=== PATIENT | female | born 1985 | race American Indian/Alaskan Native ===

== ENCOUNTER 2021-03-31 08:49 | Outpatient (CLI) | payer OTHER ==
--- NOTE | 2021-03-31 09:46 | XRay Report ---
LUMBOSACRAL SPINE 3 VIEWS INDICATION: BACK PAIN. COMPARISON: None. IMPRESSION: There appears to be minimal dextrocurvature of the lumbar spine on the frontal view. Nor mal alignment on the lateral view. No significant discogenic DJD or facet arthropathy. Normal SI sherman nts. No acute osseous or soft tissue abnormality. Signer Name: Gibson Rojas Jr, MD Signed: 03/31/2021 9:42 AM Workstation Name: [id number]
== END 2021-03-31 08:50 | disposition home or self-care (01) ==
LOC: XRAY 08:49
PROVIDERS: ATTEND Internal Medicine
DX: M54.50 Low back pain, unspecified (principal)
CPT/HCPCS: 72100